=== PATIENT | female | born 1975 | race Caucasian/White ===

== ENCOUNTER 2024-10-22 08:59 | Outpatient (AMB) | payer MEDICAID, SELFPAY ==
[2024-10-22 09:52] VITALS: BP 125/85; PULSE 79; RESP 18; TEMP 36.6; O2SAT 92; BMI 35.4
--- NOTE | 2024-10-22 09:52 | PD.ORTHCLVIS ---
Vital signs 10/22/24 09:52 Height 1.68 m Height Method Stated Weight 99.393 kg Weight Measurement Method Standing Scale BMI 35.4 BP 125/85 H Blood Pressure Source Automatic Cuff Blood Pressure Location Right Upper Arm Position Sitting Respiration 18 Pulse 79 Pulse Source Monitor Temp 97.8 F Temp Source Temporal Artery Scan Pulse Oximetry (%) 92 L Oxygen Delivery Method Room Air Med/Allergies Allergies & Medications Allergies PENCILLIN Allergy (Intermediate, Uncoded 10/22/24 09:54) RASH Medication Reconciliation duloxetine 30 mg capsule,delayed release (Cymbalta) 30 mg PO QDAY 10/22/24 [History Confirmed 10/22/24] folic acid 1 mg tablet 1 mg PO QDAY 10/22/24 [History Confirmed 10/22/24] hydrochlorothiazide 50 mg tablet 50 mg PO QDAY 10/22/24 [History Confirmed 10/22/24] hydrocodone 10 mg-acetaminophen 325 mg tablet 1 tab PO Q6H PRN 10/22/24 [History Confirmed 10/22/24] lisinopril 10 mg tablet 10 mg PO QDAY 10/22/24 [History Confirmed 10/22/24] meloxicam 15 mg tablet 15 mg PO QDAY 10/22/24 [History Confirmed 10/22/24] methotrexate sodium 2.5 mg tablet 2.5 mg PO QWEEK 10/22/24 [History Confirmed 10/22/24] ondansetron 8 mg disintegrating tablet 8 mg PO Q12H 10/22/24 [History Confirmed 10/22/24] tizanidine 2 mg capsule 2 mg PO Q8H PRN 10/22/24 [History Confirmed 10/22/24] upadacitinib 15 mg tablet,extended release 24 hr (Rinvoq) 15 mg PO QDAY 10/22/24 [History Confirmed 10/22/24] Exam Exam Patient is in no acute distress and is cooperative with the examination today. Breathing is nonlabored. Patient has a normal mood and affect. Bilateral extremities were evaluated and demonstrates sensation intact to light touch. Palpable pedal pulses are present. No significant edema is present. Bilateral hips were examined. The patient has no pain with log roll of the hips. Internal rotation to 30 degrees and external rotation to 30 degrees is painless. Negative FADIR. Right knee was examined today. The right knee is in reasonable alignment. Range of motion from 0-120 degrees. Knee is stable to varus and valgus as well as AP translation with <5mm. Patient has a negative McMurrays. There is no pain with patellofemoral compression and no crepitus noted. The knee is nontender to palpation. Left knee was examined today. The left knee is in varus alignment. Range of motion from 0-115 degrees. Knee is stable to varus and valgus as well as AP translation with <5mm. Patient has a negative McMurrays. There is no pain with patellofemoral compression and no crepitus noted. The knee is tender to palpation medially. Left knee Imaging from [facility] demonstrates moderate arthritis of the left knee with osteophytes. Assessment and Plan Problem List (1) Rheumatoid arthritis involving left knee: Status: Acute Plan: Patient is a pleasant 49-year-old female with a left knee arthritis with a history of rheumatoid and prior ACL reconstruction. The left knee pain is Bothering her quite a bit. She is never had any injections in her left knee. We Will get authorization for this. Her rheumatoid medications are being switched. We will see her back after her x-rays are done as I would like weightbearing films Office Procedures GNS Level of Care Nursing/Assessment Patient Status: Initial/New Patient Nursing Assessment/Reassesment: Medication Reconciliation, Update PMH in EMR and Vital Signs Coordination of Care: Complex Care and Chronic Disease 1-5, Education Complex Pt/Fam, Consent,records obtained, informed consent, Lab and Imaging orders, Results/Orders obtained and Staff clarify orders New Patient Charge New Patient Point Assignment: 1109 New Patient Point Charge: COMPENSATION CONSULTANT Level 3 ([id number]) MA Intake Visit Data Collection New Patient or Established: New Patient (never been to [facility]) Reason for Visit:: LEFT KNEE PAIN Seen by Clinical Staff ONLY (RN/MA): No Verbal consent obtained for Telemed visit?: No Wave Solder Offbearer Required: No PCP or OBGYN visit in last 3 months: Yes Hx Now: No Do You Feel Safe at Home: Yes Authorities Contacted: N/A Questionairres Past Medical History Past Medical History Have you ever been diagnosed with any of the following: Subjective Visit Visit for: new patient and knee Immunization / Flu Flu Vaccine in the Last 12 Months: Yes Flu Vaccine Exclusion Criteria: Already Received History of Present Illness Chief complaint: LEFT KNEE PAIN Date of injury / onset of symptoms: 2008 ACL REPAIR Tatum is a pleasant 49-year-old female with left greater than right knee pain. She does have a history of rheumatoid arthritis and prior ACL reconstruction 9 years ago. She is on injectables for her rheumatoid arthritis. Has not had any injections into her physical knee. 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
--- NOTE | 2024-10-22 10:14 | XR_ITS ---
Examination: Bilateral AP knees 2 views Right lateral knee left lateral knee 2 views Bilateral axial knees single view Exam date and time: October 22, 2024 1044 hours INDICATIONS: Left knee pain beginning 6 months ago. FINDINGS: Moderate osteopenia Moderate osteoarthritis medial joint space left knee Moderate osteoarthritis left patellofemoral joint No fracture Mild narrowing medial joint space right knee IMPRESSION: Moderate osteoarthritis medial joint space left knee Moderate osteoarthritis left patellofemoral joint
== END 2024-10-22 10:23 | disposition home or self-care (01) ==
PROVIDERS: PCP Internal Medicine Rheumatology; Referring Provider Internal Medicine Rheumatology; Supervising Provider Orthopaedic Surgery Adult Reconstructive Orthopaedic Surgery; Visit Provider Orthopaedic Surgery Adult Reconstructive Orthopaedic Surgery
DX: M06.9 Rheumatoid arthritis, unspecified (principal); M17.12 Unilateral primary osteoarthritis, left knee
CPT/HCPCS: 73564; 99203; G0463

== ENCOUNTER 2024-11-15 10:35 | Outpatient (AMB) | payer MEDICAID, SELFPAY ==
[2024-11-15 10:44] VITALS: BP 116/81; PULSE 96; RESP 18; TEMP 36.4; O2SAT 98; BMI 35.1
--- NOTE | 2024-11-15 10:44 | ORTHONT_ITS ---
Vital signs 11/15/24 10:44 Height 1.68 m Height Method Stated Weight 99.138 kg Weight Measurement Method Standing Scale BMI 35.1 BP 116/81 Blood Pressure Source Automatic Cuff Blood Pressure Location Left Upper Arm Position Sitting Respiration 18 Pulse 96 Pulse Source Monitor Temp 97.6 F Temp Source Temporal Artery Scan Pulse Oximetry (%) 98 Oxygen Delivery Method Room Air Med/Allergies Allergies & Medications Allergies PENCILLIN Allergy (Intermediate, Uncoded 11/15/24 10:46) RASH Medication Reconciliation duloxetine 30 mg capsule,delayed release (Cymbalta) 30 mg PO QDAY 10/22/24 [ History Confirmed 11/15/24] folic acid 1 mg tablet 1 mg PO QDAY 10/22/24 [History Confirmed 11/15/24] hydrochlorothiazide 50 mg tablet 50 mg PO QDAY 10/22/24 [History Confirmed 11/15/24] hydrocodone 10 mg-acetaminophen 325 mg tablet 1 tab PO Q6H PRN 10/22/24 [History Confirmed 11/15/24] lisinopril 10 mg tablet 10 mg PO QDAY 10/22/24 [History Confirmed 11/15/24] meloxicam 15 mg tablet 15 mg PO QDAY 10/22/24 [History Confirmed 11/15/24] methotrexate sodium 2.5 mg tablet 2.5 mg PO QWEEK 10/22/24 [History Confirmed 11/15/24] ondansetron 8 mg disintegrating tablet 8 mg PO Q12H 10/22/24 [History Confirmed 11/15/24] tizanidine 2 mg capsule 2 mg PO Q8H PRN 10/22/24 [History Confirmed 11/15/24] upadacitinib 15 mg tablet,extended release 24 hr (Rinvoq) 15 mg PO QDAY 10/22/24 [History Confirmed 11/15/24] Exam Exam Patient is in no acute distress and is cooperative with the examination today. Breathing is nonlabored. Patient has a normal mood and affect. Bilateral extremities were evaluated and demonstrates sensation intact to light touch. Palpable pedal pulses are present. No significant edema is present. Bilateral hips were examined. The patient has no pain with log roll of the hips. Internal rotation to 30 degrees and external rotation to 30 degrees is painless. Negative FADIR. Right knee was examined today. The right knee is in reasonable alignment. Range of motion from 0-120 degrees. Knee is stable to varus and valgus as well as AP translation with <5mm. Patient has a negative McMurrays. There is no pain with patellofemoral compression and no crepitus noted. The knee is nontender to palpation. Left knee was examined today. The left knee is in varus alignment. Range of motion from 0-115 degrees. Knee is stable to varus and valgus as well as AP translation with <5mm. Patient has a negative McMurrays. There is no pain with patellofemoral compression and no crepitus noted. The knee is tender to palpation medially. Left knee Imaging from [facility] demonstrates mild to moderate arthritis of the left knee with osteophytes. Assessment and Plan Problem List (1) Rheumatoid arthritis involving left knee: Status: Acute Plan: Patient is a pleasant 49-year-old female with a left knee arthritis with a history of rheumatoid and prior ACL reconstruction. The left knee pain is Bothering her quite a bit. She has never had any injections in her left knee. She would like to get new injections today. Recommend knee cortisone injection as patient would like to proceed with conservative treatment at this time. The risks and benefits of the procedure were reviewed with the patient and patient gave verbal consent to continue with the procedure. Procedure: performed by Dr. Keith Using sterile technique the left knee was thoroughly prepped with alcohol, and approximately 1 cc of Kenalog 40 mg/mL and 4 cc of 1% lidocaine was injected without resistance into the medial tibial femoral joint space. The patient tolerated the procedure. Office Procedures GNS Level of Care Nursing/Assessment Patient Status: Established Patient Nursing Assessment/Reassesment: Medication Reconciliation, Update PMH in EMR and Vital Signs Coordination of Care: Complex Care and Chronic Disease 1-5, Education Complex Pt/Fam, Consent,records obtained, informed consent, Results/Orders obtained and Staff clarify orders Established Patient Charge Established Patient Point Assignment: 95 Established Patient Point Charge: EP Level 3 (80-115) Surgical Proc/IM SQ injection Major Surgical Procedure: Yes (KNEE INJECTION) Medication Given Medication Given Medication Given: Yes Documented Dose Given: 4 Route: Infiitration Medication Given Medication Given Medication Given: Yes Documented Dose Given: 1 Route: Infiitration Office Meds Xylocaine 10 mg/mL (1 %) injection solution Performing Provider: Fabien Keith MD Performing Location: [facility] Administered by: Fabien Keith MD on 11/15/24 11:29 Dose Route Admin Location Dispensed Lot Number Expiration Date [place] [employer] 20 mL Infiltration 20 mL [id number] 03/01/28 34056-083-87 [employer] triamcinolone acetonide 40 mg/mL suspension for injection Performing Provider: Fabien Keith MD Performing Location: [facility] Administered by: Fabien Keith MD on 11/15/24 11:29 Dose Route Admin Location Dispensed Lot Number Expiration Date [place] [employer] In[employer] 40 mg intra-articular KNEE 1 mL [id number] 07/01/26 4130-8587-05 [facility] [place] Intake Visit Data Collection New Patient or Established: Established Patient (seen at [facility] within 3 years) Reason for Visit:: XRAY RESULTS/L KNEE PAIN REQ INJ Seen by Clinical Staff ONLY (RN/MA): No PCP or OBGYN visit in last 3 months: Yes Hx Now: No Do You Feel Safe at Home: Yes Authorities Contacted: N/A Questionairres Past Medical History Past Medical History Have you ever been diagnosed with any of the following: Respiratory Problems Smoking: No Smoking Exposure: No Subjective Visit Visit for: follow up visit, knee and injections Immunization / Flu Flu Vaccine in the Last 12 Months: No Flu Vaccine Exclusion Criteria: No Exclusion Criteria History of Present Illness Chief complaint: LEFT KNEE PAIN Date of injury / onset of symptoms: 2008 ACL REPAIR Tatum is a pleasant 49-year-old female with left greater than right knee pain. She does have a history of rheumatoid arthritis and prior ACL reconstruction 9 years ago. She is on injectables for her rheumatoid arthritis. Has not had any injections into her physical knee. 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
== END 2024-11-15 11:06 | disposition home or self-care (01) ==
LOC: HODSRG 10:35
PROVIDERS: PCP Internal Medicine Rheumatology; Referring Provider Internal Medicine Rheumatology; Supervising Provider Orthopaedic Surgery Adult Reconstructive Orthopaedic Surgery; Visit Provider Orthopaedic Surgery Adult Reconstructive Orthopaedic Surgery
DX: M06.862 Other specified rheumatoid arthritis, left knee (principal); M17.12 Unilateral primary osteoarthritis, left knee; M25.562 Pain in left knee; M25.561 Pain in right knee
CPT/HCPCS: 20610; 99213; J3301; J3490; G0463